=== PATIENT | female | born 1975 | race Caucasian/White ===

== ENCOUNTER 2017-12-09 08:06 | Emergency (ER) | payer OTHER ==
[2017-12-09] MEDS ORDERED: NA CHLORIDE 0.9% 1,000 ML ONE (08:40)
[2017-12-09] MEDS ORDERED: MORPHINE 4 MG/ML SYR ONE ×2 (08:40→10:26)
[2017-12-09] MEDS ORDERED: ONDANSETRON 4 MG/2 ML VIAL ONE (08:40)
[2017-12-09 08:43] LABS: Urine Blood NEGATIVE (NEG); Urine Glucose NEGATIVE (NEG); Urine Protein NEGATIVE (NEG); Urine Specific Gravity >1.030 (1.005-1.030); Urine pH 5.5 (5.0-7.0)
[2017-12-09 08:59] LABS: Absolute Lymphocytes (CBC) 2.3 K/uL (0.7-4.9); Absolute Monocytes 0.5 K/uL (0.1-1.3); Absolute Neutrophil 4.3 K/uL (1.8-8.0); Basophils % 0.9 % (0-1.3); Eosinophils % 0.9 % (0-4.4); Hematocrit 41.3 % (36.0-45.0); Lymphocytes % 31.6 % (15.3-44.8); MCH 28.4 pg (27.0-35.0); MCV 83.7 fL (80-100); MPV 8.8 fL (7.6-11.3); RBC Red Blood Cell Count 4.93 M/uL (3.86-4.86)
[2017-12-09 09:03] LABS: Urine Bacteria 20-50 /HPF (<20); Urine Culture Reflex Order REFLEXED; Urine RBC <5 /HPF (NONE SEEN)
[2017-12-09 09:06] LABS: Potassium 3.8 mEq/L (3.6-5.0)
[2017-12-09 09:13] LABS: Albumin 4.2 g/dL (3.2-5.5); Bilirubin Direct 0.1 mg/dL (0-0.2); Bilirubin Total 0.5 mg/dL (0.3-1.2); Protein, Total 7.7 g/dL (6.0-8.3)
--- NOTE | 2017-12-09 09:45 | RAD REPORT ---
EXAM DESCRIPTION: CT - Abdomen Pelvis W Contrast - 12/09/2017 9:25 am CLINICAL HISTORY: Abdominal pain right-sided abdominal pain since the morning COMPARISON: none. TECHNIQUE: Computed axial tomography of the abdomen pelvis was obtained. 100 cc Isovue-300 was admin istered intravenously. Oral contrast was not requested which limits evaluation of bowel. All CT scans are performed using dose optimization technique as appropriate and may include automated exposure control or mA/KV adjustment according to patient size. FINDINGS: The liver has a diminished attenuation cyst with fatty infiltration Spleen, pancreas, and adrenals appear unremarkable A couple of punctate bilateral renal calculi are present without hydronephrosis There is no evidence of diverticulitis. The appendix is normal caliber. A small amount of free fluid may be physiologic. A small umbilical hernia is present A lmetallic structure is present within the region of the urethra seen on the last 3 images. It is of uncertain etiology and should be correlated clinically IMPRESSION: Punctate nonobstructing renal calculi
[2017-12-09] MEDS ORDERED: CEFTRIAXONE/SWI 1gm 1 GM/10 ML SYR ONE (10:03)
[2017-12-09] MEDS ORDERED: KETOROLAC 30 MG/ML INJ ONE (10:03)
--- NOTE | 2017-12-09 10:23 | EDPHYS ---
Physician Documentation [facility] Name: Patsy Trammell Age: 42 yrs Sex: Female : 1975 Arrival Date: 12/09/2017 Time: 08:09 Bed 6 Private MD: None, None ED Physician Gino Colorado HPI: 12/09 09:04 This 42 yrs old Female presents to ER via Ambulatory with complaints of Back celeste Pain, Abdominal Pain, Nausea. 09:04 This 42 yrs old Female presents to ER via Ambulatory with complaints of Back celeste Pain, Abdominal Pain, Nausea. 09:04 The patient presents with pain and decreased range of motion, and tenderness. The celeste symptoms are located in the low back, right mid back and right low back. Onset: The symptoms/episode began/occurred 1 week(s) ago. The pain radiates to the right mid back and right low back. Associated signs and symptoms: The patient has no apparent associated signs or symptoms. The problem was sustained from unknown cause. Modifying factors: The patient symptoms are alleviated by nothing, the patient symptoms are aggravated by nothing. Severity of symptoms: At their worst the symptoms were moderate, in the emergency department the symptoms are unchanged. The patient has not experienced similar symptoms in the past. 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 - Social history:: Smoking status: Patient/guardian denies using tobacco. - Ebola Screening: : No symptoms or risks identified at this time. - Family history:: not pertinent. ROS: 09:04 Constitutional: Negative for fever, chills, and weight loss, Eyes: Negative for injury, celeste pain, redness, and discharge, ENT: Negative for injury, pain, and discharge, Neck: Negative for injury, pain, and swelling, Cardiovascular: Negative for chest pain, palpitations, and edema, Respiratory: Negative for shortness of breath, cough, wheezing, and pleuritic chest pain, : Negative for injury, bleeding, discharge, and swelling, MS/Extremity: Negative for injury and deformity, Skin: Negative for injury, rash, and discoloration, Neuro: Negative for headache, weakness, numbness, tingling, and seizure, Psych: Negative for depression, anxiety, suicide ideation, homicidal ideation, and hallucinations, Allergy/Immunology: Negative for hives, rash, and allergies, Endocrine: Negative for neck swelling, polydipsia, polyuria, polyphagia, and marked weight changes, Hematologic/Lymphatic: Negative for swollen nodes, abnormal bleeding, and unusual bruising. 09:04 Abdomen/GI: Positive for abdominal pain, of the posterior aspect of right lateral abdomen, anterior aspect of right lateral abdomen and right lower quadrant. 09:04 Back: Positive for flank pain, on the right. Exam: 09:04 Constitutional: This is a well developed, well nourished patient who is awake, alert, celeste and in no acute distress. Head/Face: Normocephalic, atraumatic. Eyes: Pupils equal round and reactive to light, extra-ocular motions intact. Lids and lashes normal. Conjunctiva and sclera are non-icteric and not injected. Cornea within normal limits. Periorbital areas with no swelling, redness, or edema. ENT: Nares patent. No nasal discharge, no septal abnormalities noted. Tympanic membranes are normal and external auditory canals are clear. Oropharynx with no redness, swelling, or masses, exudates, or evidence of obstruction, uvula midline. Mucous membranes moist. Neck: Trachea midline, no thyromegaly or masses palpated, and no cervical lymphadenopathy. Supple, full range of motion without nuchal rigidity, or vertebral point tenderness. No Meningismus. Chest/axilla: Normal chest wall appearance and motion. Nontender with no deformity. No lesions are appreciated. Cardiovascular: Regular rate and rhythm with a normal S1 and S2. No gallops, murmurs, or rubs. Normal PMI, no JVD. No pulse deficits. Respiratory: Lungs have equal breath sounds bilaterally, clear to auscultation and percussion. No rales, rhonchi or wheezes noted. No increased work of breathing, no retractions or nasal flaring. Female : Normal external genitalia. Skin: Warm, dry with normal turgor. Normal color with no rashes, no lesions, and no evidence of cellulitis. MS/ Extremity: Pulses equal, no cyanosis. Neurovascular intact. Full, normal range of motion. Neuro: Awake and alert, GCS 15, oriented to person, place, time, and situation. Cranial nerves II-XII grossly intact. Motor strength 5/5 in all extremities. Sensory grossly intact. Cerebellar exam normal. Normal gait. Psych: Awake, alert, with orientation to person, place and time. Behavior, mood, and affect are within normal limits. 09:04 Abdomen/GI: Inspection: abdomen appears normal, Bowel sounds: normal, Palpation: mild abdominal tenderness, Liver: no appreciated palpable abnormalities, Hernia: not appreciated. 09:04 Back: pain, that is moderate, ROM is painless, normal spinal alignment noted, CVA tenderness, is absent, vertebral tenderness, is not appreciated, muscle spasm, is not present. Vital Signs: 08:20 BP 167 / 86; Pulse 82; Resp 18 S; Temp 97.8(O); Pulse Ox 97% on R/A; Weight 81.65 kg aa5 (R); Height 5 ft. 2 in. (157.48 cm) (R); Pain 9/10; 09:00 BP 159 / 82; Pulse 73; Resp 18 S; Pulse Ox 100% on R/A; Pain 6/10; aa5 08:20 Body Mass Index 32.92 (81.65 kg, 157.48 cm) aa5 MDM: 08:19 Patient medically screened. [facility] 09:07 Data reviewed: vital signs, nurses notes, lab test result(s), radiologic studies, CT celeste scan. 12/09 08:35 Order name: Amylase, Serum; Complete Time: : 12/09 08:35 Order name: Basic Metabolic Panel; Complete Time: : 12/09 08:35 Order name: CBC with Diff; Complete Time: : 12/09 08:35 Order name: Creatinine for Radiology; Complete Time: : 12/09 08:35 Order name: Hepatic Function; Complete Time: : 12/09 08:35 Order name: Lipase; Complete Time: : 12/09 08:35 Order name: Urine Microscopic Only; Complete Time: 09: iw 12/09 08:39 Order name: Urine Dipstick--Ancillary (enter results); Complete Time: 09:03 12/09 08:39 Order name: Urine --Ancillary (enter results); Complete Time: 09:03 12/09 09:04 Order name: CT Abd/Pelvis - W/Contrast: iv only; Complete Time: 09:53 celeste 12/09 09:04 Order name: Urine Culture EDWV 12/09 08:35 Order name: IV Saline Lock; Complete Time: 08:37 iw 12/09 08:35 Order name: Labs collected and sent; Complete Time: 08:37 iw 12/09 08:35 Order name: Urine Dipstick-Ancillary (obtain specimen); Complete Time: 08:45 iw Administered Medications: 08:38 Drug: morphine 4 mg Route: IVP; Site: right antecubital; aa5 08:45 Follow up: Response: No adverse reaction aa5 08:38 Drug: Zofran 4 mg Route: IVP; Site: right antecubital; aa5 08:45 Follow up: Response: No adverse reaction aa5 08:44 Drug: NS 0.9% 1000 ml Route: IV; Rate: 1 bolus; Site: right antecubital; aa5 09:45 Follow up: IV Status: Completed infusion jl7 10:09 Drug: TORadol 30 mg Route: IVP; Site: right antecubital; iw 10:30 Follow up: Response: No adverse reaction; Pain is decreased jl7 10:09 Drug: Rocephin - (cefTRIAXone) 1 grams {Note: given as a push over 3 minutes.} Route: iw IVPB; Infused Over: 30 mins; Site: right antecubital; 10:12 Follow up: IV Status: Completed infusion jl7 10:45 Follow up: Response: No adverse reaction jl7 10:35 Drug: morphine 4 mg Route: IVP; Site: right antecubital; jl7 10:46 Follow up: Response: No adverse reaction; Pain is decreased jl7 Disposition: 12/09/17 10:23 Discharged to Home. Impression: Abdominal tenderness, Vomiting. - Condition is Stable. - Discharge Instructions: Abdominal Pain, Adult, Kidney Stones, Nausea and Vomiting, Nausea and Vomiting, [id number], Abdominal Pain, Adult, [id number]. - Prescriptions for Bentyl 20 mg Oral Tablet - take 1 tablet by ORAL route every 6 hours As needed; 20 tablet. Pepcid 20 mg Oral Tablet - take 1 tablet by ORAL route every 12 hours for 10 days; 20 tablet. Tylenol- Codeine #3 300-30 mg Oral Tablet - take 2 tablet by ORAL route every 6 hours As needed; 30 tablet. Zofran 4 mg Oral Tablet - take 1 tablet by ORAL route every 12 hours As needed; 20 tablet. - Medication Reconciliation Form, Thank You Letter, Antibiotic Education, Prescription Opioid Use, Work release form form. - Follow up: Private Physician; When: 2 - 3 days; Reason: Recheck today's complaints, Continuance of care, Re-evaluation by your physician. Follow up: Merlin Ferreira MD; When: 2 - 3 days; Reason: Recheck today's complaints, Re-evaluation by your physician. - Problem is new. - Symptoms have improved. Signatures: Dispatcher [employer] EDMS Gino Colorado MD MD cha Williams, Irene, RN RN iw Calderon, Audri, RN RN aa5 Janice Ramires RN RN jl7 Corrections: (The following items were deleted from the chart) 10:24 10:23 12/09/2017 10:23 Discharged to Home. Impression: Abdominal tenderness. Condition celeste is Stable. Forms are Medication Reconciliation Form, Thank You Letter, Antibiotic Education, Prescription Opioid Use. Follow up: Private Physician; When: 2 - 3 days; Reason: Recheck today's complaints, Continuance of care, Re-evaluation by your physician. Follow up: Merlin Ferreira; When: 2 - 3 days; Reason: Recheck today's complaints, Re-evaluation by your physician. Problem is new. Symptoms have improved. celeste 10:49 10:24 12/09/2017 10:23 Discharged to Home. Impression: Abdominal tenderness; Vomiting. jl7 Condition is Stable. Forms are Medication Reconciliation Form, Thank You Letter, Antibiotic Education, Prescription Opioid Use. Follow up: Private Physician; When: 2 - 3 days; Reason: Recheck today's complaints, Continuance of care, Re-evaluation by your physician. Follow up: Merlin Ferreira; When: 2 - 3 days; Reason: Recheck today's complaints, Re-evaluation by your physician. Problem is new. Symptoms have improved. celeste
--- NOTE | 2017-12-09 10:23 | ER ---
Nurse's Notes [facility] Name: Patsy Trammell Age: 42 yrs Sex: Female : 1975 Arrival Date: 12/09/2017 Time: 08:09 Bed 6 Private MD: None, None Diagnosis: Abdominal tenderness;Vomiting Presentation: 12/09 08:18 Presenting complaint: Patient states: Right mid-back pain radiating to right side of aa5 abdomen since this morning. Pt also reports nausea and diarrhea on and off x 1 week. Pt denies vomiting. 08:18 Transition of care: patient was not received from another setting of care. Onset of aa5 symptoms was December 09, 2017. Risk Assessment: Do you want to hurt yourself or someone else? Patient reports no desire to harm self or others. Initial Sepsis Screen: Does the patient meet any 2 criteria? No. Patient's initial sepsis screen is negative. Does the patient have a suspected source of infection? No. Patient's initial sepsis screen is negative. Care prior to arrival: None. 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 - Social history:: Smoking status: Patient/guardian denies using tobacco. - Ebola Screening: : No symptoms or risks identified at this time. - Family history:: not pertinent. Screenin:26 Abuse screen: Denies threats or abuse. Nutritional screening: No deficits noted. aa5 Tuberculosis screening: No symptoms or risk factors identified. Fall Risk None identified. Assessment: 08:25 General: Appears uncomfortable, Behavior is calm, cooperative. Pain: Complains of pain aa5 in right mid back Pain radiates to right upper quadrant and right lower quadrant Pain currently is 9 out of 10 on a pain scale. Quality of pain is described as sharp, Pain began this morning Is continuous. Neuro: Level of Consciousness is awake, alert, obeys commands, Oriented to person, place, time, situation. Cardiovascular: Heart tones S1 S2 present Rhythm is regular. Respiratory: Airway is patent Respiratory effort is even, unlabored, Respiratory pattern is regular, symmetrical. GI: Abdomen is round non-distended, Bowel sounds present X 4 quads. Abd is soft X 4 quads Abdomen is tender to palpation in right lower quadrant Reports diarrhea, nausea, Patient currently denies vomiting. : Denies burning with urination, inability to void, urinary frequency. EENT: No signs and/or symptoms were reported regarding the EENT system. Derm: Skin is pink, warm \\T\\ dry. Musculoskeletal: Range of motion: intact in all extremities. 08:59 Reassessment: Patient and/or family updated on plan of care and expected duration. Pain aa5 level reassessed. Patient is alert, oriented x 3, equal unlabored respirations, skin warm/dry/pink. Patient states feeling better. Pain: Pain currently is 5 out of 10 on a pain scale. 09:39 Reassessment: Patient and/or family updated on plan of care and expected duration. Pain aa5 level reassessed. Patient is alert, oriented x 3, equal unlabored respirations, skin warm/dry/pink. Pt sitting up in bed, pt states "I don't need anything for the pain right now" . Pain: Pain currently is 6 out of 10 on a pain scale. 10:25 Reassessment: Pt reports decreased pain at this time, rated 3/10. jl7 Vital Signs: 08:20 BP 167 / 86; Pulse 82; Resp 18 S; Temp 97.8(O); Pulse Ox 97% on R/A; Weight 81.65 kg aa5 (R); Height 5 ft. 2 in. (157.48 cm) (R); Pain 9/10; 09:00 BP 159 / 82; Pulse 73; Resp 18 S; Pulse Ox 100% on R/A; Pain 6/10; aa5 08:20 Body Mass Index 32.92 (81.65 kg, 157.48 cm) aa5 ED Course: 08:09 Patient arrived in ED. mr 08:10 None, None is Private Physician. mr 08:19 Gino Colorado MD is Attending Physician. [facility] 08:19 Janice Ramires, ALFONSO is Primary Nurse. jl7 08:20 Arm band placed on Patient placed in an exam room, on a stretcher. aa5 08:20 Patient has correct armband on for positive identification. Placed in gown. Bed in low aa5 position. Call light in reach. Side rails up X2. 08:23 Candelaria Dallas, RN is Primary Nurse. aa5 08:25 Triage completed. aa5 08:36 Initial lab(s) drawn, by me, sent to lab. Inserted saline lock: 20 gauge in right aa5 antecubital area, using aseptic technique. Blood collected. 08:48 No provider procedures requiring assistance completed. aa5 09:25 CT Abd/Pelvis - W/Contrast: iv only In Process Unspecified. EDMS 09:25 CT completed. Patient moved to CT via wheelchair. Patient moved back from CT. bq 09:31 Patient moved back from [address]. aa5 10:22 Merlin Ferreira MD is Referral Physician. celeste 10:46 IV discontinued, intact, bleeding controlled, No redness/swelling at site. Pressure jl7 dressing applied. Administered Medications: 08:38 Drug: morphine 4 mg Route: IVP; Site: right antecubital; aa5 08:45 Follow up: Response: No adverse reaction aa5 08:38 Drug: Zofran 4 mg Route: IVP; Site: right antecubital; aa5 08:45 Follow up: Response: No adverse reaction aa5 08:44 Drug: NS 0.9% 1000 ml Route: IV; Rate: 1 bolus; Site: right antecubital; aa5 09:45 Follow up: IV Status: Completed infusion jl7 10:09 Drug: TORadol 30 mg Route: IVP; Site: right antecubital; iw 10:30 Follow up: Response: No adverse reaction; Pain is decreased jl7 10:09 Drug: Rocephin - (cefTRIAXone) 1 grams {Note: given as a push over 3 minutes.} Route: iw IVPB; Infused Over: 30 mins; Site: right antecubital; 10:12 Follow up: IV Status: Completed infusion jl7 10:45 Follow up: Response: No adverse reaction jl7 10:35 Drug: morphine 4 mg Route: IVP; Site: right antecubital; jl7 10:46 Follow up: Response: No adverse reaction; Pain is decreased jl7 Outcome: 10:23 Discharge ordered by . celeste 10:46 Discharged to home ambulatory, with family. jl7 10:46 Condition: stable 10:46 Discharge instructions given to patient, family, Instructed on discharge instructions, follow up and referral plans. medication usage, Demonstrated understanding of instructions, follow-up care, medications, Prescriptions given X 3. 10:49 Patient left the ED. jl7 Signatures: Dispatcher [employer] EDMS Gino Colorado MD MD cha Rivera, Maria mr Janetmago, Rosy Naqvi, Candelarai Talbot RN, RN RN aa5 Janice Ramires RN RN jl7
== END 2017-12-09 10:49 | disposition home or self-care (01) ==
LOC: ER 08:06
DX: R11.10 Vomiting, unspecified (principal)
CPT/HCPCS: 36415; 74177; 80048; 80076; 81003; 81015; 81025; 82150; 83690; 85025; 87086; 87088; 96361; 96374; 96375; 99284; J0696; J2405; J7030; Q9967

== ENCOUNTER 2022-04-13 10:43 | Emergency (ER) | payer BC ==
[2022-04-13] MEDS ORDERED: ASPIRIN 81 MG CHEWABLE TABLET ONE (11:46)
[2022-04-13 12:22] LABS: Protime INR 0.96
[2022-04-13 12:30] LABS: Absolute Lymphocytes (CBC) 2.2 K/uL (0.7-4.9); Hematocrit 42.2 % (36.0-45.0); Lymphocytes % 29.5 % (15.3-44.8); MCV 85.3 fL (80-100); MPV 8.2 fL (7.6-11.3); RBC Red Blood Cell Count 4.95 M/uL (3.86-4.86)
--- NOTE | 2022-04-13 12:30 | RAD REPORT ---
EXAM DESCRIPTION: [place] Single View04/13/2022 12:23 pm CLINICAL HISTORY: Palpitation COMPARISON: none FINDINGS: The lungs appear clear of acute infiltrate. The heart is normal size IMPRESSION: No acute abnormalities displayed
[2022-04-13 12:39] LABS: Bilirubin Direct 0.1 mg/dL (0-0.2); Bilirubin Total 0.4 mg/dL (0.2-1.0); Magnesium 2.3 mg/dL (1.8-2.4); Protein, Total 8.2 g/dL (6.4-8.2); Troponin High Sensitivity 5.4 pg/mL (<58.9)
[2022-04-13 12:50] LABS: Thyroid Stimulating Hormone 4.61 uIU/mL (0.360-3.740)
--- NOTE | 2022-04-13 15:53 | ER ---
Nurse's Notes [facility] Name: Patsy Trammell Age: 46 yrs Sex: Female : 1975 Arrival Date: 04/13/2022 Time: 10:47 Bed 4 Private MD: Diagnosis: Chest pain, unspecified;Palpitations;Essential (primary) hypertension Presentation: 04/13 10:58 Chief complaint: Patient states: high BP , palpitations, abnormal EKG at PCP today. iw Coronavirus screen: At this time, the client does not indicate any symptoms associated with coronavirus-19. Ebola Screen: Patient negative for fever greater than or equal to 101.5 degrees Fahrenheit, and additional compatible Ebola Virus Disease symptoms Patient denies exposure to infectious person. Patient denies travel to an Ebola-affected area in the 21 days before illness onset. No symptoms or risks identified at this time. Initial Sepsis Screen: Does the patient meet any 2 criteria? No. Patient's initial sepsis screen is negative. Does the patient have a suspected source of infection? No. Patient's initial sepsis screen is negative. Risk Assessment: Do you want to hurt yourself or someone else? Patient reports no desire to harm self or others. Onset of symptoms was April 13, 2022. 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 - Social history:: Smoking status: Patient denies any tobacco usage or history of. Screenin:03 Abuse screen: Denies threats or abuse. Denies injuries from another. Nutritional db screening: No deficits noted. Tuberculosis screening: No symptoms or risk factors identified. Fall Risk None identified. No fall in past 12 months (0 pts). No secondary diagnosis (0 pts). No IV (0 pts). Ambulatory Aid- None/Bed Rest/Nurse Assist (0 pts). Gait- Normal/Bed Rest/Wheelchair (0 pts) Mental Status- Oriented to own ability (0 pts). Total Hernández Fall Scale indicates No Risk (0-24 pts). Assessment: 11:02 Reassessment: Patient appears in no apparent distress at this time. Patient is alert, db oriented x 3, equal unlabored respirations, skin warm/dry/pink. General: Appears in no apparent distress. comfortable, Behavior is calm, cooperative, quiet. Pain: Denies pain. Neuro: No deficits noted. Level of Consciousness is awake, alert, Oriented to person, place, time, situation, Appropriate for age Gait is steady, Speech is normal, Facial symmetry appears normal, Pupils are PERRLA. Cardiovascular: Reports chest pain, yesterday denies pain now. Respiratory: No deficits noted. Respiratory: Reports shortness of breath yesterday. Denies SOB now. GI: No deficits noted. : No signs and/or symptoms were reported regarding the genitourinary system. EENT: No deficits noted. Derm: No deficits noted. Musculoskeletal: No deficits noted. 12:31 Reassessment: Patient appears in no apparent distress at this time. No changes from db previously documented assessment. Patient and/or family updated on plan of care and expected duration. Pain level reassessed. Patient is alert, oriented x 3, equal unlabored respirations, skin warm/dry/pink. Patient denies pain at this time. 13:42 Reassessment: Patient appears in no apparent distress at this time. No changes from db previously documented assessment. patient provided snack. 15:00 Reassessment: Patient appears in no apparent distress at this time. No changes from db previously documented assessment. Patient and/or family updated on plan of care and expected duration. Pain level reassessed. Patient is alert, oriented x 3, equal unlabored respirations, skin warm/dry/pink. 16:00 Reassessment: Patient appears in no apparent distress at this time. No changes from db previously documented assessment. Patient and/or family updated on plan of care and expected duration. Pain level reassessed. Patient is alert, oriented x 3, equal unlabored respirations, skin warm/dry/pink. Vital Signs: 10:58 BP 179 / 101; Pulse 78; Resp 16; Temp 98.2; Pulse Ox 100% on R/A; Weight 92.53 kg; iw Height 5 ft. 2 in. (157.48 cm); Pain 0/10; 11:05 BP 170 / 91; Pulse 72; Resp 16; Pulse Ox 97% on R/A; Pain 0/10; db 12:00 BP 177 / 101; Pulse 70; Resp 20; Pulse Ox 99% ; Pain 0/10; db 13:00 BP 163 / 93; Pulse 68; Resp 18; Pulse Ox 99% ; Pain 0/10; db 16:00 BP 132 / 88; Pulse 74; Resp 16; Pulse Ox 96% ; Pain 0/10; db 10:58 Body Mass Index 37.31 (92.53 kg, 157.48 cm) iw Vitals: 12:00 Cardiac Rhythm Assessment Regular Sinus rhythm. db Kirkland Coma Score: 11:03 Eye Response: spontaneous(4). Verbal Response: oriented(5). Motor Response: obeys db commands(6). Total: 15. ED Course: 10:47 Patient arrived in ED. rg4 10:51 Karolina Ford FNP-C is PHCP. snw 10:52 Renato Rodriguez MD is Attending Physician. snw 10:59 Triage completed. iw 11:01 Heather Grant, RN is Primary Nurse. db 11:01 Arm band placed on. iw 11:03 Patient has correct armband on for positive identification. Bed in low position. Call db light in reach. Side rails up X 1. Warm blanket given. 12:08 Client placed on continuous cardiac and pulse oximetry monitoring. NIBP monitoring db applied. 12:08 Initial lab(s) drawn, by me, EKG done. Inserted saline lock: 20 gauge in right db antecubital area, using aseptic technique. Blood collected. 14:40 Repeat lab(s) drawn. by me, sent to lab. db 16:43 No provider procedures requiring assistance completed. IV discontinued, intact, db bleeding controlled, No redness/swelling at site. Administered Medications: 11:53 Drug: Aspirin Chewable Tablet 324 mg Route: PO; db 13:18 Follow up: Response: No adverse reaction db Medication: 11:03 VIS not applicable for this client. db Outcome: 15:52 Discharge ordered by . snw 16:40 Patient left the ED. iw 16:43 Discharged to home ambulatory. db 16:43 Condition: stable 16:43 Discharge instructions given to patient, Instructed on discharge instructions, follow up and referral plans. Signatures: Karolina Ford FNP-C FNP-AbigailRosy Lewis, RN RN iw Gay Jett rg4 Heather Grant, RN RN db
--- NOTE | 2022-04-13 15:53 | EDPHYS ---
Physician Documentation [facility] Name: Patsy Trammell Age: 46 yrs Sex: Female : 1975 Arrival Date: 04/13/2022 Time: 10:47 Bed 4 Private MD: ED Physician Renato Rodriguez HPI: 04/13 12:11 This 46 yrs old Female presents to ER via Ambulatory with complaints of High Blood snw Pressure. 12:11 The patient has elevated blood pressure and discovered this at home, with a home snw device. Onset: The symptoms/episode began/occurred suddenly, yesterday. Associated signs and symptoms: Pertinent positives: chest pain, lightheadedness. Severity of symptoms: At its worst the blood pressure was moderate, 180 mm Hg. The patient has not experienced similar symptoms in the past. The patient has been recently seen by a physician: the patient's primary care provider, earlier today, with similar presenting complaints, and was sent to the [facility] Emergency Department for further evaluation. Saw RAJ Murphy today, abnormal EKG in office per report. 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 - Social history:: Smoking status: Patient denies any tobacco usage or history of. ROS: 12:10 Constitutional: Negative for fever, chills, and weight loss, Eyes: Negative for injury, snw pain, redness, and discharge, ENT: Negative for injury, pain, and discharge, Neck: Negative for injury, pain, and swelling, Respiratory: Negative for shortness of breath, cough, wheezing, and pleuritic chest pain, Abdomen/GI: Negative for abdominal pain, nausea, vomiting, diarrhea, and constipation, Back: Negative for injury and pain, : Negative for injury, bleeding, discharge, and swelling, MS/Extremity: Negative for injury and deformity, Skin: Negative for injury, rash, and discoloration, Neuro: Negative for headache, weakness, numbness, tingling, and seizure, Psych: Negative for depression, anxiety, suicide ideation, homicidal ideation, and hallucinations. 12:10 Cardiovascular: Positive for palpitations. Exam: 11:36 Constitutional: This is a well developed, well nourished patient who is awake, alert, snw and in no acute distress. Head/Face: Normocephalic, atraumatic. Eyes: Pupils equal round and reactive to light, extra-ocular motions intact. Lids and lashes normal. Conjunctiva and sclera are non-icteric and not injected. Cornea within normal limits. Periorbital areas with no swelling, redness, or edema. Mild exopthalmus ENT: Nares patent. No nasal discharge, no septal abnormalities noted. Tympanic membranes are normal and external auditory canals are clear. Oropharynx with no redness, swelling, or masses, exudates, or evidence of obstruction, uvula midline. Mucous membranes moist. Neck: Trachea midline, no thyromegaly or masses palpated, and no cervical lymphadenopathy. Supple, full range of motion without nuchal rigidity, or vertebral point tenderness. No Meningismus. Chest/axilla: Normal chest wall appearance and motion. Nontender with no deformity. No lesions are appreciated. Cardiovascular: Regular rate and rhythm with a normal S1 and S2. No gallops, murmurs, or rubs. Normal PMI, no JVD. No pulse deficits. Respiratory: Lungs have equal breath sounds bilaterally, clear to auscultation and percussion. No rales, rhonchi or wheezes noted. No increased work of breathing, no retractions or nasal flaring. Abdomen/GI: Soft, non-tender, with normal bowel sounds. No distension or tympany. No guarding or rebound. No evidence of tenderness throughout. Back: No spinal tenderness. No costovertebral tenderness. Full range of motion. Skin: Warm, dry with normal turgor. Normal color with no rashes, no lesions, and no evidence of cellulitis. MS/ Extremity: Pulses equal, no cyanosis. Neurovascular intact. Full, normal range of motion. Neuro: Awake and alert, GCS 15, oriented to person, place, time, and situation. Cranial nerves II-XII grossly intact. Motor strength 5/5 in all extremities. Sensory grossly intact. Cerebellar exam normal. Normal gait. Psych: Awake, alert, with orientation to person, place and time. Behavior, mood, and affect are within normal limits. Vital Signs: 10:58 BP 179 / 101; Pulse 78; Resp 16; Temp 98.2; Pulse Ox 100% on R/A; Weight 92.53 kg; iw Height 5 ft. 2 in. (157.48 cm); Pain 0/10; 11:05 BP 170 / 91; Pulse 72; Resp 16; Pulse Ox 97% on R/A; Pain 0/10; db 12:00 BP 177 / 101; Pulse 70; Resp 20; Pulse Ox 99% ; Pain 0/10; db 13:00 BP 163 / 93; Pulse 68; Resp 18; Pulse Ox 99% ; Pain 0/10; db 16:00 BP 132 / 88; Pulse 74; Resp 16; Pulse Ox 96% ; Pain 0/10; db 10:58 Body Mass Index 37.31 (92.53 kg, 157.48 cm) iw Tatyana Coma Score: 11:03 Eye Response: spontaneous(4). Verbal Response: oriented(5). Motor Response: obeys db commands(6). Total: 15. MDM: 11:28 Patient medically screened. snw 12:18 Data reviewed: vital signs, nurses notes. Data interpreted: Pulse oximetry: on room air snw is 97 %. Interpretation: normal. Counseling: I had a detailed discussion with the patient and/or guardian regarding: the historical points, exam findings, and any diagnostic results supporting the discharge/admit diagnosis, the presence of at least one elevated blood pressure reading (>120/80) during this emergency department visit, lab results, radiology results. 13:33 HEART Score: History: Slightly Suspicious (0), ECG: Non specific repolarization snw disturbance / LBTB / PM (1), Age: > 45 and < 65 years (1), Risk Factors: 1 or 2 risk factors (1), [Hypertension] Troponin: < or = 1 x Normal Limit (0), Total Score = 3. The patient was given aspirin in the Emergency Department. 15:51 Special discussion: Based on the patient's history, exam, and Dx evaluation, there is snw no indication for emergent intervention or inpatient Tx. It is understood by the patient/guardian that if the Sx's persist or worsen they need to return immediately for re-evaluation. Based on the history and exam findings, there is no indication for further emergent testing or inpatient evaluation. 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 04/13 11:29 Order name: Basic Metabolic Panel snw 04/13 11:29 Order name: CBC with Diff snw 04/13 11:29 Order name: LFT's sn 04/13 11:29 Order name: Magnesium sn 04/13 11:29 Order name: NT PRO-BNP sn 04/13 11:29 Order name: PT-INR [facility] 04/13 11:29 Order name: Troponin HS sn 04/13 11:35 Order name: TSH sn 04/13 12:22 Order name: Protime (+INR); Complete Time: 12:25 EDMS 04/13 12:37 Order name: CBC with Automated Diff; Complete Time: 12:40 EDMS 04/13 12:39 Order name: Basic Metabolic Panel; Complete Time: 12:40 EDMS 04/13 12:39 Order name: Liver (Hepatic) Function; Complete Time: 12:40 EDMS 04/13 12:39 Order name: Troponin High Sensitivity; Complete Time: 12:40 EDMS 04/13 12:39 Order name: NT PRO-BNP; Complete Time: 12:40 EDMS 04/13 11:29 Order name: XRAY Chest (1 view) 04/13 11:29 Order name: EKG; Complete Time: 11:30 w 04/13 11:29 Order name: Cardiac monitoring; Complete Time: 12:14 w 04/13 11:29 Order name: EKG - Nurse/Tech; Complete Time: 12:14 snw 04/13 11:29 Order name: IV Saline Lock; Complete Time: 12:14 w 04/13 11:29 Order name: Labs collected and sent; Complete Time: 12:14 snw 04/13 11:29 Order name: O2 Per Protocol; Complete Time: 12:14 snw 04/13 11:29 Order name: O2 Sat Monitoring; Complete Time: 12:14 snw 04/13 12:31 Order name: RAD; Complete Time: 12:40 EDMS 04/13 12:39 Order name: Magnesium; Complete Time: 12:40 EDMS 04/13 12:50 Order name: Thyroid Stimulating Hormone; Complete Time: 13:04 EDMS 04/13 13:03 Order name: T4 Free; Complete Time: 13:04 EDMS 04/13 14:12 Order name: Troponin High Sensitivity; Complete Time: 15:47 snw 04/13 14:12 Order name: EKG; Complete Time: 14:12 snw 04/13 14:12 Order name: EKG - Nurse/Tech; Complete Time: 14:47 snw EC:00 Rate is 68 beats/min. Rhythm is regular. ND interval is normal. QRS interval is normal. snw QT interval is normal. No Q waves. T waves are Normal. Clinical impression: NSR w/ Non-specific ST/T Changes. 14:48 Rate is 74 beats/min. Rhythm is regular. Left axis deviation noted. QRS interval is snw normal. QT interval is normal. No Q waves. Clinical impression: NSR w/ Non-specific ST/T Changes. Administered Medications: 11:53 Drug: Aspirin Chewable Tablet 324 mg Route: PO; db 13:18 Follow up: Response: No adverse reaction db Disposition: 17:40 Co-signature as Attending Physician, Renato Rodriguez MD. rn Disposition Summary: 04/13/22 15:52 Discharge Ordered Location: Home snw Condition: Stable snw Diagnosis - Chest pain, unspecified snw - Palpitations snw - Essential (primary) hypertension snw Followup: snw - With: Emergency Department - When: As needed - Reason: Worsening of condition Followup: snw - With: Private Physician - When: 1 - 2 days - Reason: Recheck today's complaints, Continuance of care, Re-evaluation by your physician Discharge Instructions: - Discharge Summary Sheet snw - Nonspecific Chest Pain, Adult snw - Hypertension, Adult snw - Palpitations snw - Aspirin and Your Heart snw - DASH Eating Plan snw - Managing Your Hypertension snw - Form - Blood Pressure Record Sheet snw Forms: - Medication Reconciliation Form snw - Thank You Letter snw - Antibiotic Education snw - Prescription Opioid Use snw - Work release form snw Signatures: Dispatcher [employer] [facility] Karolina Ford FNP-C INVENTORY WORKER-Csnw Rosy Valladares, RN Renato Calloway MD MD rn Benton, Danielle, RN RN db
[2022-04-13 16:54] VITALS: TEMP 98.2
[2022-04-13 17:06] VITALS: O2SAT 99
[2022-04-13 17:07] VITALS: BP 163/93
--- NOTE | 2022-04-14 11:42 | EKG ---
Test Date: 2022-04-13 Test Time: 14:41:10 Instructional Technology Instructor: TANJA MEASUREMENT RESULTS: Intervals: Rate: 74 SC: 202 QRSD: 76 QT: 412 QTc: 457 [place]: P: 45 SC: 202 QRS: -40 T: 52 INTERPRETIVE STATEMENTS: Normal sinus rhythm Left axis deviation Abnormal ECG Compared to ECG 04/13/2022 11:58:13 No significant changes Electronically Signed On 04-14-22 11:39:00 CDT by Hernandez Kaye
--- NOTE | 2022-04-14 11:43 | EKG ---
Test Date: 2022-04-13 Test Time: 11:58:13 Visiting Nurse: TANJA MEASUREMENT RESULTS: Intervals: Rate: 68 SD: 190 QRSD: 74 QT: 416 QTc: 442 [place]: P: 58 SD: 190 QRS: -40 T: 50 INTERPRETIVE STATEMENTS: Normal sinus rhythm Left axis deviation Abnormal ECG No previous ECG available for comparison Electronically Signed On 04-14-22 11:39:06 CDT by Hernandez Kaye
== END 2022-04-13 16:40 | disposition home or self-care (01) ==
LOC: ER 10:43
DX: I10 Essential (primary) hypertension (principal); R07.9 Chest pain, unspecified; R00.2 Palpitations; F41.9 Anxiety disorder, unspecified; Z28.310 Unvaccinated for COVID-19
CPT/HCPCS: 36415; 71045; 80048; 80076; 83735; 83880; 84439; 84443; 84484; 85025; 85610; 93005; 99284